=== PATIENT | female | born 1990 | race African-American/Black ===

== ENCOUNTER 2019-08-14 07:25 | Emergency (ER) | payer BC, OTHER ==
[~2019-08-14] VITALS: Ht 170.2 cm; Wt 86.2 kg
--- NOTE | 2019-08-14 07:40 | NUR ---
Pt.was seen by with new orders.
[2019-08-14] MEDS ORDERED: LORAZEPAM 2 MG/1 ML VIAL IV ONE (08:00)
[2019-08-14] MEDS ORDERED: IV NORMAL SALINE 1000 ML BAG IV ONE (08:00)
[2019-08-14 08:01] LABS: BASOPHILS % (AUTO) 0.2 % (0.0-2.0); EOSINOPHILS % (AUTO) 0.1 % (0.0-7.0); HEMOGLOBIN 13.5 g/dL (10.9-14.3); LYMPHOCYTES # (AUTO) 0.5 K/uL (20.0-40.0); LYMPHOCYTES % (AUTO) 2.9 % (20.5-51.5); MEAN CORPUSCULAR HEMOGLOBIN 27.3 uug (24.7-32.8); MEAN CORPUSCULAR HGB CONC 33 g/dL (32.3-35.6); MEAN CORPUSCULAR VOLUME 83.1 fL (75.5-95.3); MONOCYTES # (AUTO) 0.5 K/uL (2.0-10.0); MONOCYTES % (AUTO) 3.3 % (0.0-11.0); NEUTROPHILS # (AUTO) 15.2 K/uL (1.8-8.9); NEUTROPHILS % (AUTO) 93.5 % (38.5-71.5); PLATELET COUNT (AUTO) 209 K/uL (179-408); RED BLOOD CELL COUNT(AUTO) 4.94 MIL/uL (3.63-4.92); WHITE BLOOD COUNT (AUTO) 16.2 K/uL (3.8-11.8)
[2019-08-14 08:06] LABS: CREATININE 0.9 mg/dL (0.6-1.3); POTASSIUM 3.5 mmol/L (3.5-5.1)
[2019-08-14 08:25] LABS: THYROID STIMULATING HORMONE 1.199 mIU/mL (0.358-3.740)
[2019-08-14] MEDS ORDERED: LORAZEPAM 2 MG/1 ML VIAL ONE (08:30)
--- NOTE | 2019-08-14 08:30 | NUR ---
Pt.in bed,watching TV,no s/s of acute distress.
--- NOTE | 2019-08-14 08:44 | NUR ---
at bedside,updated pt.with lab /cxr resolts,pt.denies any CP ,no s/s of distress.
--- NOTE | 2019-08-14 09:43 | NUR ---
Family member at bedside,updated with pt.condition.
[2019-08-14 10:24] VITALS: BP 121/68
--- NOTE | 2019-08-14 10:25 | NUR ---
D/C instruction provided, pt.verbalize d/c instruction, d/c home.Family at bedside.
== END 2019-08-14 10:48 | disposition home or self-care (01) ==
LOC: ER 07:25
DX: F41.9 Anxiety disorder, unspecified (principal)
CPT/HCPCS: 36415; 71045; 80048; 84443; 84484; 84702; 85025; 85379; 93005; 96361; 96374; 99284; J2060; 70030-TC; A4663; J7030